=== PATIENT | female | born 2000 | race Asian ===

== ENCOUNTER 2021-12-30 11:55 | Emergency (ER) | payer BC ==
[2021-12-30 12:08] VITALS: TEMP 98.2; BMI 25.4
[2021-12-30] MEDS ORDERED: NAPROXEN 500 MG TABLET PO ONE (14:10)
[2021-12-30] MEDS ORDERED: NAPROXEN 500 MG TABLET ONE (17:14)
[2021-12-30 17:30] LABS: BASO % 0.8 % (0-2.0); HEMATOCRIT 37.4 % (32.4-45.2); HEMOGLOBIN 12.6 GM/dL (10.7-15.3); LYMPH % 40.4 % (8-40); MCH 30.5 pg (25.7-33.7); MCHC 33.8 g/dl (32.0-36.0); MEAN CELL VOLUME 90.5 fl (80-96); MEAN PLT VOLUME 6.8 fl (7.5-11.1); MONO % 7.4 % (3.8-10.2); NEUT % 49.4 % (42.8-82.8); PLATELET COUNT 318 10^3/uL (134-434); RBC 4.13 M/mm3 (3.60-5.2); RDW 12.5 % (11.6-15.6); WHITE BLOOD COUNT 8.1 K/mm3 (4.0-10.0)
[2021-12-30 17:37] LABS: INR 1.17 (0.83-1.09); PROTHROMBIN TIME (PATIENT) 13.5 SEC (9.7-13.0)
[2021-12-30 19:04] VITALS: BP 122/70; PULSE 72; RESP 18
== END 2021-12-30 19:11 | disposition home or self-care (01) ==
LOC: JER 11:55
DX: R07.9 Chest pain, unspecified (principal)
CPT/HCPCS: 36415; 71046-TC-FY; 84484; 84703; 85025; 85379; 85610; 93005; 93010; 99285-25

== ENCOUNTER 2022-10-23 15:26 | Emergency (ER) | payer BC ==
[2022-10-23 15:35] VITALS: BP 120/65; PULSE 105; RESP 18; TEMP 98.2; BMI 25.5
[2022-10-23] MEDS ORDERED: IBUPROFEN 600 MG TABLET (FP) PO ONE ×2 (16:40→16:59)
[2022-10-23] MEDS ORDERED: LORATADINE 10 MG TABLET PO ONE (16:40)
[2022-10-23] MEDS ORDERED: LORATADINE 10 MG TABLET ONE (16:59)
== END 2022-10-23 17:20 | disposition home or self-care (01) ==
LOC: JERFT 15:26
DX: R50.9 Fever, unspecified (principal); M54.50 Low back pain, unspecified; R21 Rash and other nonspecific skin eruption; L29.9 Pruritus, unspecified; R07.0 Pain in throat; M79.10 Myalgia, unspecified site; R51.9 Headache, unspecified; B34.9 Viral infection, unspecified
CPT/HCPCS: 99283-25